=== PATIENT | female | born 2005 | race Caucasian/White ===

== ENCOUNTER → 2023-03-15 08:54 | Outpatient (BNVA) | payer MEDICAID, SELFPAY | PROVIDERS: Visit Provider Nurse Practitioner Women's Health | DX: N97.9 Female infertility, unspecified (principal); N92.6 Irregular menstruation, unspecified; N94.6 Dysmenorrhea, unspecified; E28.2 Polycystic ovarian syndrome; Z31.9 Encounter for procreative management, unspecified | CPT/HCPCS: 82670; 83036; 83525; 84146; 84402; 84439; 84443; 84481 ==

== ENCOUNTER → 2023-04-23 11:14 | Outpatient (BNVA) | payer MEDICAID, SELFPAY | PROVIDERS: Visit Provider Nurse Practitioner Women's Health | DX: N92.6 Irregular menstruation, unspecified (principal); E28.2 Polycystic ovarian syndrome | CPT/HCPCS: 76830 ==

== ENCOUNTER → 2023-05-29 08:59 | Outpatient (BNVA) | payer MEDICAID, SELFPAY | PROVIDERS: PCP Nurse Practitioner Women's Health; Visit Provider Nurse Practitioner Women's Health | DX: N92.6 Irregular menstruation, unspecified (principal); E28.2 Polycystic ovarian syndrome | CPT/HCPCS: 84144 ==

== ENCOUNTER → 2023-06-19 08:08 | Outpatient (BNVA) | payer MEDICAID, SELFPAY | PROVIDERS: PCP Nurse Practitioner Women's Health; Referring Provider Nurse Practitioner Women's Health; Visit Provider Internal Medicine | DX: E28.2 Polycystic ovarian syndrome (principal); E88.819 Insulin resistance, unspecified; N92.6 Irregular menstruation, unspecified; Z79.84 Long term (current) use of oral hypoglycemic drugs; E66.9 Obesity, unspecified; Z68.54 Body mass index [BMI] pediatric, 95th percentile for age to less than 120% of the 95th percentile for age | CPT/HCPCS: 99204 ==

== ENCOUNTER → 2023-07-26 11:21 | Outpatient (BNVA) | payer MEDICAID, SELFPAY | PROVIDERS: PCP Nurse Practitioner Family; Visit Provider Nurse Practitioner Family | DX: Z79.899 Other long term (current) drug therapy (principal); Z13.6 Encounter for screening for cardiovascular disorders | CPT/HCPCS: 80053; 80061; 81003; 85025 ==

== ENCOUNTER → 2023-10-24 08:26 | Outpatient (BNVA) | payer MEDICAID, SELFPAY | PROVIDERS: PCP Nurse Practitioner Family; Visit Provider Internal Medicine | DX: E28.2 Polycystic ovarian syndrome (principal); E88.819 Insulin resistance, unspecified; N92.6 Irregular menstruation, unspecified; E16.2 Hypoglycemia, unspecified; Z79.84 Long term (current) use of oral hypoglycemic drugs | CPT/HCPCS: 99214 ==